=== PATIENT | female | born 1990 | race Caucasian/White ===

== ENCOUNTER 2017-06-04 13:03 | Emergency (ER) | payer OTHER ==
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
[2017-06-04 14:31] VITALS: BP 143/89; TEMP 97.8; O2SAT 99
== END 2017-06-04 14:32 | disposition home or self-care (01) ==
LOC: ER 13:03
DX: Z04.1 Encounter for examination and observation following transport accident (principal)

== ENCOUNTER → 2018-04-08 | Outpatient (CLI) | payer OTHER | LOC: LAB.O 18:05 | PROVIDERS: ATTEND Physician Assistant | DX: R03.0 Elevated blood-pressure reading, without diagnosis of hypertension (principal) ==

== ENCOUNTER → 2019-03-10 | Outpatient (CLI) | payer OTHER | LOC: LAB.O 15:47 | PROVIDERS: ATTEND Internal Medicine Hematology & Oncology | DX: D50.8 Other iron deficiency anemias (principal) ==

== ENCOUNTER → 2019-04-01 | Outpatient (CLI) | payer OTHER | LOC: LAB.O 16:46 | PROVIDERS: ATTEND Surgery | DX: E28.2 Polycystic ovarian syndrome (principal); F32.9 Major depressive disorder, single episode, unspecified; E21.3 Hyperparathyroidism, unspecified; K86.1 Other chronic pancreatitis ==

== ENCOUNTER → 2019-04-24 | Outpatient (CLI) | payer OTHER ==
--- NOTE | 2019-04-25 10:28 | US ---
US THYROID CLINICAL STATEMENT: Hyperparathyroidism. COMPARISON: None TECHNIQUE: Transcutaneous scanning, grayscale and Doppler modes. FINDINGS: Size right thyroid lobe: 4.8 x 2.6 x 1.9 cm Size left thyroid lobe: 4.7 x 1.6 x 1.4 cm Size isthmus: 0.32 cm Estimated total number of nodules greater than or equal to 1 cm: 1 diffusely heterogeneous. No distinct cysts, no calcifications, no parenchymal edema. Nodule 1: Size: 1.0 x 0.6 x 0.5 cm Location: Right Lower Composition: solid or almost completely solid: 2 points Echogenicity: hypoechoic: 2 points Shape: wider than tall: 0 points Margins: smooth: 0 points Echogenic foci: none: 0 points ACR Total Points: 4; ACR TI-RADS risk category: TR4 - moderately suspicious nodule. Nodule 2: Size: 0.4 x 0.3 x 0.2 cm Location: Right Mid Composition: spongiform: 0 points Echogenicity: hypoechoic: 2 points Shape: wider than tall: 0 points Margins: smooth: 0 points Echogenic foci: none: 0 points ACR Total Points: 2; ACR TI-RADS risk category: TR2 - nonsuspicious nodule. Nodule 3: Size: 0.5 x 0.5 x 0.3 cm Location: Left Mid Composition: solid or almost completely solid: 2 points Echogenicity: hypoechoic: 2 points Shape: wider than tall: 0 points Margins: smooth: 0 points Echogenic foci: none: 0 points ACR Total Points: 4; ACR TI-RADS risk category: TR4 - moderately suspicious nodule. No dominant solid mass or distinct cyst in the adjacent soft tissues. IMPRESSION: 1. Nodule 1: ACR TI-RADS 2017 Category TR4. Recommend: Follow-up ultrasound in 1 year.. Recommendations based upon [facility] Best [facility] recommendations and ACR TI-RADS 2017 guidelines. Please see below*. 2. Nodule 2: ACR TI-RADS 2017 Category TR2. Recommend: No further follow-up. 3. Nodule 3: ACR TI-RADS 2017 Category TR4. Recommend: No further follow-up. 4. Soft tissue around the thyroid gland is unremarkable. *ACR TI-RADS 2017 Recommendations for imaging follow-up of nodules: TR1: No FNA or follow up TR2: No FNA or follow up TR3: FNA if >/= 2.5 cm, follow up if 1.5 - 2.4 cm in 1, 3, and 5 years TR4: FNA if >/= 1.5 cm, follow up if 1.0 - 1.4 cm in 1, 2, 3, and 5 years TR5: FNA if >/= 1.0 cm, follow up if 0.5 - 0.9 cm every year for 5 years ACR TI-RADS recommends that no more than two nodules with the highest ACR TI-RADS total point should be biopsied and no more than four nodules should be followed. These recommendations do not apply to patients with increased risk for thyroid cancer or patients with symptomatic thyroid disease. Electronically signed by: Dax Muse MD 04/25/2019 10:27 AM CDT
== END ==
LOC: US 13:17
PROVIDERS: ATTEND Surgery
DX: E28.2 Polycystic ovarian syndrome (principal); F32.9 Major depressive disorder, single episode, unspecified; E21.3 Hyperparathyroidism, unspecified; E04.2 Nontoxic multinodular goiter; K86.1 Other chronic pancreatitis

== ENCOUNTER → 2019-04-25 | Outpatient (CLI) | payer OTHER ==
--- NOTE | 2019-04-27 16:31 | NM ---
EXAM DESCRIPTION: Parathyroid Scan: CR/DR/XR. CLINICAL HISTORY: 28 years Female, POLYCYSTIC OVARIAN DISEASE. Previous removal of parathyroid tumor. Elevated serum calcium and elevated parathyroid hormone. COMPARISON: CT scan of the chest 04/14/2019. TECHNIQUE: Patient was given 25.8 mCi of technetium 99m sestamibi orally. Initial images obtained of the head and chest with anterior gamma camera positioning along with anterior positioning of the neck only, 15 minutes after administration. Images were repeated 1 hour after the initial images. FINDINGS: On the initial images, there is increased activity abutting the lateral aspect of the inferior pole of the right thyroid gland. On the prior CT scan, there is nodular, nonenhancing, density abutting the mid and inferior pole of the right thyroid lobe. Similar asymmetry of the activity can be seen on the 1 hour and 15 minute delayed images. IMPRESSION: Increased sestamibi activity in the inferior pole of the right thyroid lobe and lateral to the inferior pole. With one hour delay, there may be activity from the thyroid gland contributing to this finding. But there is also a radiodense nodule abutting the inferior right lobe on the prior CT scan. Differential includes parathyroid nodule or ectopic/juxtacortical thyroid nodule from the right lower pole. Electronically signed by: Dax Muse MD 04/27/2019 4:29 PM CDT
== END ==
LOC: NM 12:38
PROVIDERS: ATTEND Surgery
DX: E21.3 Hyperparathyroidism, unspecified (principal); E04.1 Nontoxic single thyroid nodule; E28.2 Polycystic ovarian syndrome; F32.9 Major depressive disorder, single episode, unspecified; K86.1 Other chronic pancreatitis

== ENCOUNTER → 2019-05-23 | Outpatient (CLI) | payer OTHER | LOC: LAB.O 13:09 | PROVIDERS: ATTEND Obstetrics & Gynecology | DX: D68.0 Von Willebrand disease (principal); D64.9 Anemia, unspecified ==

== ENCOUNTER → 2019-09-29 | Outpatient (CLI) | payer OTHER | DX: R22.42 Localized swelling, mass and lump, left lower limb (principal) ==

== ENCOUNTER → 2019-12-10 | Outpatient (CLI) | payer OTHER ==
--- NOTE | 2019-12-11 08:08 | MRI ---
EXAM DESCRIPTION: Brain w/wo Contrast: MRI. CLINICAL HISTORY: PITUITARY MASS COMPARISON: Radionuclide parathyroid and ultrasound thyroid April 2019. TECHNIQUE: Multiplanar, high-field MRI unit, multiple sequences before and after 1 mL per 5 kg body weight gadolinium IV contrast. No adverse reactions. FINDINGS: Irregular, nonenhancing mass in the pituitary gland involving the anterior and mid gland. Dimensions are 5.5 mm craniocaudal, 1.5 cm transverse, and 6.4 mm oblique AP. The mass extends above the sella in the midline into the left of midline resulting in minimal right shift of the infundibulum as it enters the pituitary. Suprasellar cistern is predominantly CSF with no enhancement. Normal signal and enhancement of the optic chiasm, distal optic tracts, and proximal optic nerves. Normal FLAIR and T2-weighted signal in the miguel matter and white matter of the cerebral and cerebellar hemispheres. No hemorrhage, no cerebral edema, no mass-effect. No abnormal contrast enhancement. Normal diffusion is seen with no diffusion restriction. Cortical sulci, ventricles, and other CSF and subdural spaces are normally configured for the patient's age. No effacement or displacement. No midline shift. Normal signal in the brainstem and basal ganglia. No abnormal contrast enhancement. IACs are unremarkable. Normal signal in the mastoid air cells bilaterally. Normal flow signal void in the major vessels of the [place], and the venous sinuses. Contour of the cerebellopontine angles is unremarkable with no abnormal contrast enhancement. Base of the cerebellar tonsils is at the level of the foramen magnum. The paranasal sinuses demonstrate a large polyp versus mucous retention cyst in the base of the left maxillary antrum. Small focal cyst or inflammatory process in the base of the posterior right antrum. Possible polyp in the anterior aspect of the antrum.. The bony calvarium is unremarkable except for a fan like lesion in the marrow in the parasagittal posterior left parietal bone.. IMPRESSION: 1. 1.5 cm nonenhancing mass in the pituitary gland with a suprasellar component to the left of midline, displacing the inferior infundibulum to the right as it enters the pituitary gland. Differential includes pituitary microadenoma versus small macroadenoma. Correlate with clinical and laboratory findings. No mass effect on the optic nerves or chiasm. 2. Cerebral hemispheres and posterior fossa structures are unremarkable. No evidence of significant ischemia, subacute or acute infarction. 3. Inflammatory polyps/cysts in the paranasal sinuses. Electronically signed by: Dax Muse MD 12/11/2019 8:07 AM CDT
== END ==
LOC: MRI 09:00
PROVIDERS: ATTEND Neurological Surgery
DX: Z01.812 Encounter for preprocedural laboratory examination (principal); D35.2 Benign neoplasm of pituitary gland; E23.7 Disorder of pituitary gland, unspecified; J34.9 Unspecified disorder of nose and nasal sinuses

== ENCOUNTER → 2020-01-09 | Outpatient (CLI) | payer OTHER | LOC: LAB.O 11:10 | PROVIDERS: ATTEND Obstetrics & Gynecology | DX: N92.0 Excessive and frequent menstruation with regular cycle (principal); D68.0 Von Willebrand disease ==